=== PATIENT | female | born 1940 | race Caucasian/White ===

== ENCOUNTER 2017-08-24 06:23 | Inpatient (IN) | payer OTHER ==
[2017-08-24] VITALS (7 sets, daily range): BP systolic 117–176; BP diastolic 55–74; Ht 152.4 cm; Wt 54.5 kg
[~2017-08-24] VITALS: Ht 152.4 cm; Wt 54.5 kg
[2017-08-24 08:16] LABS: BASOPHIL % 0.5 % (0-2)
[2017-08-24 08:17] LABS: PLATELET COUNT 444 x10^3mcL (130-400); RED CELL DISTRIBUTION WIDTH 18.5 % (11.5-14.5); rbc morphology (normal/abnorm) ABNORMAL (NORMAL)
[2017-08-24 08:31] LABS: CALCIUM 9.9 mg/dL (8.5-10.1); CARBON DIOXIDE 24.9 mmol/L (21-32); CHLORIDE SERUM 103 mmol/L (98-107); CREATININE SERUM 0.7 mg/dL (0.6-1.0); GLUCOSE SERUM 174 mg/dL (74-106); POTASSIUM SERUM 3.7 mmol/L (3.5-5.1); SODIUM SERUM 141 mmol/L (136-145)
[2017-08-24 08:36] LABS: ALBUMIN 4.1 g/dL (3.4-5.0); ALKALINE PHOSPHATASE 39 U/L (46-116); ALT/SGPT 29 U/L (14-59); AST/SGOT 29 U/L (15-37); BILIRUBIN TOTAL 0.59 mg/dL (0.20-1.00); TOTAL PROTEIN, SERUM 7.6 g/dL (6.4-8.2)
[2017-08-24 08:38] LABS: CHOLESTEROL 129 mg/dL (<200); HDL CHOLESTEROL 32 mg/dL (40-60)
[2017-08-24] MEDS ORDERED: GLUCOTROL10 MG PO (10:19)
[2017-08-24] MEDS ORDERED: FENOFIBRATE134 MG PO (10:20)
[2017-08-24] MEDS ORDERED: METFORMIN HCL1000 MG PO (10:20)
[2017-08-24] MEDS ORDERED: VERAPAMIL HYDR240 MG PO (10:20)
[2017-08-24] MEDS ORDERED: FERGON240 MG PO (10:21)
[2017-08-24] MEDS ORDERED: FARXIGA10 MG PO (10:21)
[2017-08-24] MEDS ORDERED: COZAAR100 MG PO (10:21)
[2017-08-24] MEDS ORDERED: ZOCOR20 MG PO (10:21)
[2017-08-24] MEDS ORDERED: ALENDRONATE SOD70 M2 PO (10:22)
[2017-08-24] MEDS ORDERED: PROAIR HFA8.5 GM IH (10:22)
[2017-08-24] MEDS ORDERED: GOOD SENSE OMEP20 MG PO (10:22)
[2017-08-24] MEDS ORDERED: BREO ELLIPTA1 PO1 IH (10:23)
[2017-08-24 10:34] LABS: microscopic required? YES; urine erythrocyte NEGATIVE (NEGATIVE)
[2017-08-24 11:52] LABS: T3 TOTAL 0.92 ng/mL
[2017-08-24 14:47] LABS: MAGNESIUM 1.8 mg/dL (1.8-2.4); PHOSPHOROUS 4.5 mg/dL (2.5-4.9)
[2017-08-24 14:56] LABS: FREE T4 1.34 ng/dL (0.76-1.46); FREE THYROXINE INDEX 4.2 ug/dL (1.4-4.5); T4(THYROXINE) 12.6 ug/dL (4.7-13.3)
[2017-08-25 05:24] VITALS: BP 139/63
[2017-08-25 06:12] LABS: CALCIUM 9.2 mg/dL (8.5-10.1); CARBON DIOXIDE 24.7 mmol/L (21-32); CHLORIDE SERUM 104 mmol/L (98-107); CREATININE SERUM 0.8 mg/dL (0.6-1.0); GLUCOSE SERUM 216 mg/dL (74-106); POTASSIUM SERUM 3.9 mmol/L (3.5-5.1); SODIUM SERUM 142 mmol/L (136-145)
[2017-08-25 06:20] LABS: BASOPHIL % 0.1 % (0-2)
[2017-08-25 06:54] LABS: PLATELET COUNT 435 x10^3mcL (130-400); RED CELL DISTRIBUTION WIDTH 18.8 % (11.5-14.5)
[2017-08-25 09:38] VITALS: BP 125/77
[2017-08-25 13:07] VITALS: BP 144/63
[2017-08-25 17:23] VITALS: BP 143/59
[2017-08-25 21:24] VITALS: BP 135/62
[2017-08-26 05:55] VITALS: BP 140/69
[2017-08-26 06:46] LABS: CALCIUM 8.4 mg/dL (8.5-10.1); CARBON DIOXIDE 26.6 mmol/L (21-32); CHLORIDE SERUM 106 mmol/L (98-107); CREATININE SERUM 0.7 mg/dL (0.6-1.0); GLUCOSE SERUM 151 mg/dL (74-106); POTASSIUM SERUM 3.8 mmol/L (3.5-5.1); SODIUM SERUM 143 mmol/L (136-145)
[2017-08-26 08:16] LABS: BASOPHIL % 0 % (0-2); PLATELET COUNT 437 x10^3mcL (130-400); RED CELL DISTRIBUTION WIDTH 18.7 % (11.5-14.5)
[2017-08-26 08:56] VITALS: BP 152/58
[2017-08-26] MEDS ORDERED: LEVAQUIN750 MG PO (09:29)
[2017-08-26 12:51] VITALS: BP 127/59; BP 99/54
[2017-08-26] MEDS ORDERED: LAC PO (12:56)
[2017-08-26] MEDS ORDERED: AUG500 PO (12:56)
[2017-08-26] MEDS ORDERED: MEDDP PO (12:58)
[2017-08-26] MEDS ORDERED: ATIVAN0.5 M1 PO (13:14)
== END 2017-08-26 16:34 | disposition home or self-care (01) | DRG 178 ==
LOC: ED 06:23 → DU 09:55
PROVIDERS: Emergency Medicine; Family Medicine
DX: J69.0 Pneumonitis due to inhalation of food and vomit (principal); J45.901 Unspecified asthma with (acute) exacerbation; J44.1 Chronic obstructive pulmonary disease with (acute) exacerbation; N39.0 Urinary tract infection, site not specified; J98.11 Atelectasis; E78.00 Pure hypercholesterolemia, unspecified; D50.9 Iron deficiency anemia, unspecified; Z53.29 Procedure and treatment not carried out because of patient's decision for other reasons; E11.65 Type 2 diabetes mellitus with hyperglycemia; I10 Essential (primary) hypertension; Z90.49 Acquired absence of other specified parts of digestive tract; Z90.13 Acquired absence of bilateral breasts and nipples; Z90.710 Acquired absence of both cervix and uterus; Z88.1 Allergy status to other antibiotic agents; Z99.81 Dependence on supplemental oxygen; Z79.899 Other long term (current) drug therapy
CPT/HCPCS: 36600; 82962; 83880; 84439; 87804; 92610-GN; 94150; J0696; J2543; J2920; J2930; J7030; J7620; Q0092

== ENCOUNTER 2018-05-31 03:20 | Emergency (ER) | payer OTHER ==
[~2018-05-31] VITALS: Ht 152.4 cm; Wt 56.2 kg
[~2018-05-31 03:20] MED LIST: ALENDRONATE SOD70 M2 PO; ATIVAN0.5 M1 PO; AUG500 PO; BREO ELLIPTA1 PO1 IH; COZAAR100 MG PO; FARXIGA10 MG PO; FENOFIBRATE134 MG PO; FERGON240 MG PO; GLUCOTROL10 MG PO; GOOD SENSE OMEP20 MG PO; LAC PO; LEVAQUIN750 MG PO; MEDDP PO; METFORMIN HCL1000 MG PO; PROAIR HFA8.5 GM IH; VERAPAMIL HYDR240 MG PO; ZOCOR20 MG PO
[2018-05-31 04:35] VITALS: BP 174/81
== END 2018-05-31 04:35 | disposition home or self-care (01) ==
LOC: ED 03:20
DX: J06.9 Acute upper respiratory infection, unspecified (principal); J45.909 Unspecified asthma, uncomplicated; I10 Essential (primary) hypertension; E11.9 Type 2 diabetes mellitus without complications; E78.00 Pure hypercholesterolemia, unspecified; Z90.12 Acquired absence of left breast and nipple; Z88.2 Allergy status to sulfonamides; Z88.1 Allergy status to other antibiotic agents
CPT/HCPCS: Q0092

== ENCOUNTER 2018-10-06 09:34 | Emergency (ER) | payer OTHER ==
[~2018-10-06] VITALS: Ht 157.5 cm; Wt 58.1 kg
[2018-10-06 09:41] VITALS: Ht 157.5 cm; Wt 58.1 kg
[2018-10-06 10:34] LABS: microscopic required? NO
[2018-10-06 10:53] LABS: CALCIUM 9.4 mg/dL (8.5-10.1); CARBON DIOXIDE 26.4 mmol/L (21-32); CHLORIDE SERUM 103 mmol/L (98-107); GLUCOSE SERUM 122 mg/dL (74-106); POTASSIUM SERUM 3.4 mmol/L (3.5-5.1); SODIUM SERUM 140 mmol/L (136-145)
[2018-10-06 10:57] LABS: ALBUMIN 3.9 g/dL (3.4-5.0); ALKALINE PHOSPHATASE 40 U/L (46-116); ALT/SGPT 29 U/L (14-59); AST/SGOT 21 U/L (15-37); BILIRUBIN TOTAL 0.7 mg/dL (0.20-1.00); LIPASE 73 IU/L (73-393); TOTAL PROTEIN, SERUM 7.3 g/dL (6.4-8.2)
[2018-10-06 10:59] LABS: BASOPHIL % 0.1 % (0-2); PLATELET COUNT 336 x10^3mcL (130-400)
[2018-10-06 11:00] LABS: RED CELL DISTRIBUTION WIDTH 16.6 % (11.5-14.5)
[2018-10-06 11:06] LABS: UA SPECIFIC GRAVITY 1.015 (1.005-1.035); urine erythrocyte NEGATIVE (NEGATIVE)
[2018-10-06 11:54] VITALS: BP 137/55
== END 2018-10-06 11:54 | disposition home or self-care (01) ==
LOC: ED 09:34
PROVIDERS: Emergency Medicine
DX: R10.12 Left upper quadrant pain (principal); R10.32 Left lower quadrant pain; J45.909 Unspecified asthma, uncomplicated; I10 Essential (primary) hypertension; E11.9 Type 2 diabetes mellitus without complications; E78.00 Pure hypercholesterolemia, unspecified; Z90.49 Acquired absence of other specified parts of digestive tract; Z88.2 Allergy status to sulfonamides; Z88.1 Allergy status to other antibiotic agents
CPT/HCPCS: 36415; 82962

== ENCOUNTER 2020-04-02 03:12 | Emergency (ER) | payer OTHER ==
[~2020-04-02] VITALS: Ht 157.5 cm; Wt 56.7 kg
[2020-04-02 03:20] VITALS: Ht 157.5 cm; Wt 56.7 kg
[2020-04-02 04:55] LABS: BASOPHIL % 0.9 % (0-2)
[2020-04-02 05:00] LABS: CALCIUM 9.5 mg/dL (8.5-10.1); CARBON DIOXIDE 22.7 mmol/L (21-32); CHLORIDE SERUM 106 mmol/L (98-107); CREATININE SERUM 0.9 mg/dL (0.6-1.0); GLUCOSE SERUM 177 mg/dL (74-106); POTASSIUM SERUM 4.2 mmol/L (3.5-5.1); SODIUM SERUM 142 mmol/L (136-145)
[2020-04-02 05:08] LABS: UA SPECIFIC GRAVITY 1.015 (1.005-1.035); microscopic required? YES; urine erythrocyte NEGATIVE (NEGATIVE)
[2020-04-02 05:09] LABS: ALBUMIN 4.1 g/dL (3.4-5.0); ALKALINE PHOSPHATASE 49 U/L (46-116); ALT/SGPT 14 U/L (14-59); AST/SGOT 17 U/L (15-37); BILIRUBIN TOTAL 0.39 mg/dL (0.20-1.00); LIPASE 159 IU/L (73-393); TOTAL PROTEIN, SERUM 7.5 g/dL (6.4-8.2)
[2020-04-02 05:11] LABS: IRON 7 ug/dL (50-170); TOTAL IRON BINDING CAPACITY 641 ug/dL (250-450)
[2020-04-02 05:15] LABS: RED CELL DISTRIBUTION WIDTH 19.2 % (11.5-14.5)
[2020-04-02 06:49] VITALS: BP 134/60
[2020-04-02 08:19] LABS: rbc morphology (normal/abnorm) ABNORMAL (NORMAL)
[2020-04-02 08:21] LABS: PLATELET COUNT 536 x10^3mcL (130-400)
== END 2020-04-02 06:49 | disposition left against medical advice (07) ==
LOC: ED 03:12
PROVIDERS: Emergency Medicine
DX: R10.13 Epigastric pain (principal); J45.909 Unspecified asthma, uncomplicated; I10 Essential (primary) hypertension; E11.9 Type 2 diabetes mellitus without complications; E78.00 Pure hypercholesterolemia, unspecified; Z88.1 Allergy status to other antibiotic agents; Z88.2 Allergy status to sulfonamides